=== PATIENT | male | born 1975 | race Caucasian/White ===

== ENCOUNTER 2019-12-17 20:54 | Emergency (ER) | payer OTHER ==
[2019-12-17] MEDS ORDERED: Lisinopril 10 MG Tab PO ONE (21:15)
--- NOTE | 2019-12-17 21:17 | EDM.PDOC ---
ED HPI GENERAL MEDICAL PROBLEM - General Chief Complaint: Asthma Stated Complaint: NEEDS ASTHMA INHALER Time Seen by Provider: 12/17/19 21:01 - History of Present Illness INITIAL COMMENTS - FREE TEXT/NARRATIVE: Pedro presents today with complaints of high blood pressure and needing an albuterol inhaler. He reports a history of asthma and hypertension. [place] in the area [place] and has forgotten his medications. He denies fever, chills, nausea, vomiting, change in bowel/bladder, headaches, dizziness, chest pain, palpitations or other concerns. He reports use of claritin D, melatonin for OTC medications. - Related Data Allergies Allergy/AdvReac Type Severity Reaction Status Date / Time No Known Allergies Allergy Verified 12/17/19 21:08 Home Meds: Home Meds Albuterol Sulfate [Albuterol Sulfate Hfa] 2 puff INH QID PRN 12/17/19 [History] Fluticasone/Salmeterol [Fluticasone-Salmeterol 232-14 MCG Powder Inha] 1 puff INH BID 12/17/19 [History] lisinopriL [Lisinopril] 1 tab PO DAILY 12/17/19 [History] Past Medical History Cardiovascular History: Reports: Hypertension Respiratory History: Reports: Asthma Musculoskeletal History: Reports: Fracture - Past Surgical History Musculoskeletal Surgical History: Reports: ORIF Social & Family History - Tobacco Use Smoking Status *Q: Current Some Day Smoker Years of Tobacco use: 30 Packs/Tins Daily: 0.1 - Caffeine Use Caffeine Use: Reports: Coffee - Alcohol Use Days Per Week of Alcohol Use: 1 Number of Drinks Per Day: 6 Total Drinks Per Week: 6 - Recreational Drug Use Recreational Drug Use: No ED ROS GENERAL - Review of Systems Review Of Systems: See Below Constitutional: Reports: No Symptoms HEENT: Reports: No Symptoms Respiratory: Reports: No Symptoms Cardiovascular: Reports: No Symptoms Endocrine: Reports: No Symptoms Musculoskeletal: Reports: No Symptoms Skin: Reports: No Symptoms Neurological: Reports: No Symptoms Psychiatric: Reports: No Symptoms Hematologic/Lymphatic: Reports: No Symptoms Immunologic: Reports: No Symptoms ED EXAM, GENERAL - Physical Exam Exam: See Below Exam Limited By: No Limitations General Appearance: Alert, WD/WN, No Apparent Distress Head: Atraumatic, Normocephalic Respiratory/Chest: No Respiratory Distress, Lungs Clear, Normal Breath Sounds, No Accessory Muscle Use, Chest Non-Tender, Wheezing (faint expiratory wheezes). No: Crackles, Rales, Rhonchi, Stridor, Accessory Muscle Use, Retractions Cardiovascular: Normal Peripheral Pulses, Regular Rate, Rhythm, No Edema, No Murmur, No Rub Back Exam: Normal Inspection, Full Range of Motion Extremities: Normal Inspection, Normal Range of Motion, Non-Tender, No Pedal Edema, Normal Capillary Refill Neurological: Alert, Oriented, Normal Cognition, Normal Gait, No Motor/Sensory Deficits Psychiatric: Normal Affect, Normal Mood Skin Exam: Warm, Dry, Intact, Normal Color, No Rash Lymphatic: No Adenopathy Course - Vital Signs Last Recorded V/S: Last Vital Signs Temp 37.2 C 12/17/19 21:12 Pulse 114 H 12/17/19 21:12 Resp 18 12/17/19 21:12 BP 162/117 H 12/17/19 21:22 Pulse Ox 96 12/17/19 21:12 - Orders/Labs/Meds Orders: Active Orders 24 hr Category Date Time Status RT Post Treatment Assessment [RC] Click to Edit Care 12/17/19 21:16 Active Albuterol [Ventolin HFA] Med 12/17/19 22:00 Active 1 gm INH QID Medication Orders Albuterol (Ventolin Hfa) 1 gm INH QID DAVID Last Admin: 12/17/19 21:22 Dose: 2 puff Documented by: ROBERT Meds: Medications Generic Name Dose Route Start Last Admin Trade Name Freq PRN Reason Stop Dose Admin Albuterol 1 gm 12/17/19 22:00 12/17/19 21:22 Ventolin Hfa INH 2 puff QID DAVID Administration Discontinued Medications Generic Name Dose Route Start Last Admin Trade Name Freq PRN Reason Stop Dose Admin Lisinopril 20 mg 12/17/19 21:15 12/17/19 21:22 Prinivil PO 12/17/19 21:16 20 mg ONETIME ONE Administration - Re-Assessments/Exams Free Text/Narrative Re-Assessment/Exam: recheck BP 160/95 Departure - Departure Time of Disposition: 21:30 Disposition: Home, Self-Care 01 Condition: Good Clinical Impression: Asthma, Hypertension - Discharge Information Instructions: Hypertension, Adult, [id number], Asthma, Adult, [id number] Referrals: PCP,None [Primary Care Provider] - Forms: ED Department Discharge Additional Instructions: Asthma and hypertension Lisinopril 20mg by mouth in the emergency room. Albuterol inhaler provided. Take lisinopril 10mg once a day, hard copy script provided. Stop use of claritin D as it can increase blood pressure (D=pseudoephedrine) Try use of zyrtec (cetirizine) 10mg by mouth daily for seasonal allergies. Follow up with primary in 7 to 10 days for a blood pressure check. If any worsening, headaches, chest pain, shortness of breath, change in vision or other concerns return to the emergency room. Sepsis Event Note (ED) - Evaluation Sepsis Screening Result: No Definite Risk - Focused Exam Vital Signs: Vital Signs Temp Pulse Resp BP BP Pulse Ox 12/17/19 21:22 162/117 H 12/17/19 21:12 37.2 C 114 H 18 162/117 H 96 - My Orders Last 24 Hours: My Active Orders 12/17/19 21:16 RT Post Treatment Assessment [RC] Click to Edit 12/17/19 22:00 Albuterol [Ventolin HFA] 1 gm INH QID - Assessment/Plan Last 24 Hours: My Active Orders 12/17/19 21:16 RT Post Treatment Assessment [RC] Click to Edit 12/17/19 22:00 Albuterol [Ventolin HFA] 1 gm INH QID Assessment:: asthma hypertension Plan: Asthma and hypertension Lisinopril 20mg by mouth in the emergency room. Albuterol inhaler provided. Take lisinopril 10mg once a day, hard copy script provided. Stop use of claritin D as it can increase blood pressure (D=pseudoephedrine) Try use of zyrtec (cetirizine) 10mg by mouth daily for seasonal allergies. Follow up with primary in 7 to 10 days for a blood pressure check. If any worsening, headaches, chest pain, shortness of breath, change in vision or other concerns return to the emergency room.
[2019-12-17] MEDS ORDERED: Albuterol 8 GM Inhaler INH SCH (22:00)
== END 2019-12-17 21:37 | disposition home or self-care (01) ==
LOC: JP.ED 20:54
DX: J45.909 Unspecified asthma, uncomplicated (principal); I10 Essential (primary) hypertension; F17.210 Nicotine dependence, cigarettes, uncomplicated; Z79.899 Other long term (current) drug therapy
CPT/HCPCS: 94640; 99283; A9270